=== PATIENT | female | born 1975 | race Caucasian/White ===

== ENCOUNTER 2025-03-17 20:39 | Emergency (ER) | payer MEDICAID ==
[~2025-03-17] VITALS: Ht 160 cm; Wt 63.1 kg
--- NOTE | 2025-03-17 22:38 | ED.PDOC ---
HPI Comments PT WAS MOVING FURNITURE, INJURED HEAD HAS A LAC AND HAS A HEADACHE, NO LOC DENIES NECK PAIN, DIZZINESS, CHEST PAIN, SHORTNESS OF BREATH, ABDOMINAL PAIN, NAUSEA, VOMITING, DIARRHEA, OR BACK PAIN.. 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 AUTOMOTIVE TIRE TESTER History Family History Family History: Unknown Social History Smoker: Non-Smoker Alcohol: Denies ETOH Use Drugs: Denies Drug Use Lives In: Home All Other Systems: Reviewed and Negative (SEE HPI) Physical Exam General Appearance: No Apparent Distress, Normal HEENT: Normal ENT Inspection, Pharynx Normal, TMs Normal Neck: Full Range of Motion, Non-Tender, Normal, Normal Inspection Respiratory: Chest Non-Tender, Lungs Clear, No Accessory Muscle Use, No Respiratory Distress, Normal Breath Sounds Cardiovascular: No Edema, No JVD, No Murmur, No Gallop, Normal Peripheral Pulses, Regular Rate/Rhythm Breast Exam: Deferred Gastrointestinal: No Organomegaly, Non Tender, No Pulsatile Mass, Normal Bowel Sounds, Soft Genitalia: Deferred Pelvic: Deferred Rectal: Deferred Extremities: No calf tenderness, Normal capillary refill, Normal inspection, Normal range of motion, Non-tender, No pedal edema Musculoskeletal : Apperance: Normal Neurologic: Alert, horse breeder II-XII nml as Tested, No Motor Deficits, Normal Affect, Normal Mood, No Sensory Deficits Cerebellar Function: Normal Reflexes: Normal Skin: Dry, Lacerations (FRONTAL SCALP 1.5 CM, NO OBVIOUS FB, BLEEDING CONTRO LLED ), Normal Color, Warm Lymphatic: No Adenopathy Was a procedure done? Was a procedure done?: Yes Sedation Sedation?: No Informed consent obtained: Yes Laceration Repair : Location frontal scalp Length 1.5 cm Anesthetic: Nothing Laceration Repair Prep: Saline, by Irrigation Laceration Repair Wound Comple: epidermis/dermis repair Laceration Repair: Krishna (1) Informed consent obtained: Yes Risks, benefits, and alternati: Yes Differential diagnosis Generic Laceration: Hematoma, Fracture, Retained Foriegn Body, Laceration, Avulsion Differential Diagnosis: Closed Head Injury, Skull Fracture X-Ray, Labs, Meds, VS Vital Signs Date Time Temp Pulse Resp B/P (MAP) Pulse Ox O2 Delivery O2 Flow Rate FiO2 03/17/25 22:43 97.8 97 18 137/88 (104) 97 97.8 03/17/25 22:43 97 18 97 Room Air 03/17/25 20:40 97.8 97 18 137/88 97 97.8 X-Ray, Labs, Meds, VS Comment See procedure note. Advised to follow up in 7-10 days for staple removal. Monitor for signs and symptoms of infection and bleeding return to the ER immediately. Post staple care provided follow up with your PCP in 2-3 days as needed. [id number] Tylenol or Motrin as needed for the pain per labeled dosing instructions. Advised to rest increase p.o. fluids with electrolytes. Patient indicates understanding and agrees with discharge plan of care. Time of 1ST Reevaluation: 20:57 Reevaluation 1ST: Unchanged Time of 2ND Reevaluation: 22:40 Reevaluation 2ND: Improved Patient Education/Counseling: Diagnosis, Treatment, Prognosis, Need For Follow Up Family Education/Counseling: Diagnosis, Treatment, Prognosis, Need For Follow Up Departure 1 Departure Time of Disposition: 22:38 Impression: Primary Impression: Laceration of scalp Qualified Codes: S01.01XA - Laceration without foreign body of scalp, initial encounter Disposition: HOME / SELF CARE / HOMELESS Condition: Stable Discharged With: Other (SON) Critical Care Note Critical Care Time?: No Stability Stability form required: ELENO Lao Mar 17, 2025 22:38
[2025-03-17 22:43] VITALS: BP 137/88; PULSE 97; RESP 18; TEMP 97.8; O2SAT 97
== END 2025-03-17 22:46 | disposition home or self-care (01) ==
LOC: ER 20:39
DX: S01.01XA Laceration without foreign body of scalp, initial encounter (principal); E11.9 Type 2 diabetes mellitus without complications; Z88.0 Allergy status to penicillin; Z88.5 Allergy status to narcotic agent; Z90.49 Acquired absence of other specified parts of digestive tract; X58.XXXA Exposure to other specified factors, initial encounter; Y93.89 Activity, other specified; Y92.89 Other specified places as the place of occurrence of the external cause; Y99.8 Other external cause status
CPT/HCPCS: 12001